=== PATIENT | female | born 1950 | race Caucasian/White ===

== ENCOUNTER 2016-12-22 12:03 | Inpatient (IN) | payer SELFPAY ==
[2016-12-22] MEDS ORDERED: IPRATROPIUM/ALBUTEROL 3 ML NEB INH ONE ×2 (12:34→13:51)
[2016-12-22] MEDS ORDERED: IPRATROPIUM/ALBUTEROL 3 ML NEB INH STA ×2 (12:37→13:46)
[2016-12-22 12:59] LABS: BASOPHILS # (AUTO) 0.1 10^3/uL (0.0-0.1); EOSINOPHILS % (AUTO) 0.1 %; MEAN PLATELET VOLUME 7.7 fL (7.9-10.8)
[2016-12-22 13:03] LABS: BILIRUBIN,TOTAL 0.5 mg/dL (0.2-1.0); CALCIUM 8.8 mg/dL (8.5-10.3); CREATININE 0.6 mg/dL (0.4-1.0); POTASSIUM 3.4 mmol/L (3.5-5.0)
[2016-12-22 13:04] LABS: BASOPHILS % (AUTO) 0.5 %; HCT - HEMATOCRIT 34.7 % (37.0-47.0); HGB - HEMOGLOBIN 11.5 g/dL (12.0-16.0); LYMPHOCYTES # (AUTO) 1.6 10^3/uL (1.5-3.5); LYMPHOCYTES % (AUTO) 11.1 %; MEAN CORPUSCULAR HGB CONC 33.2 g/dL (32.0-36.0); MEAN CORPUSCULAR VOLUME 81.4 fL (81.0-99.0); MONOCYTES # (AUTO) 1.5 10^3/uL (0.0-1.0); MONOCYTES % (AUTO) 10.3 %; NEUTROPHILS # (AUTO) 11.2 10^3/uL (1.5-6.6); NUCLEATED RED BLOOD CELLS AUTO 0.4 /100WBC; RED BLOOD COUNT 4.26 10^6/uL (4.20-5.40); RED CELL DISTRIBUTION WIDTH 16.8 % (12.0-15.0); UNCORRECTED WHITE BLOOD COUNT 14.4 x10^3/uL; WHITE BLOOD COUNT 14.4 x10^3/uL (4.8-10.8)
--- NOTE | 2016-12-22 13:14 | XRAY Preliminary Report ---
Exam: XR Chest 2 View PA/LAT IMPRESSION: 1. 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 2. Bibasilar increase in reticulonodular opacities. This could represent a pattern of bilateral bronc hiolitis and airway inflammation versus pulmonary vascular congestion and edema secondary to pericard ial disease [facility] SITE ID: [id number]
--- NOTE | 2016-12-22 13:17 | XRAY Report ---
EXAM: CHEST RADIOGRAPHY EXAM DATE: 12/22/2016 01:05 PM. CLINICAL HISTORY: Dyspnea and cough. COMPARISON: 01/27/2012. TECHNIQUE: 2 views. FINDINGS: Lungs/Pleura: There are increased bibasilar reticulonodular opacities. There are calcified pleural pl aques with pleural thickening which appear similar to previous. Mediastinum: There are pericardial calcifications. Heart size is normal. Other: None. IMPRESSION: 1. 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 2. Bibasilar increase in reticulonodular opacities. This could represent a pattern of bilateral bronc hiolitis and airway inflammation versus pulmonary vascular congestion and edema secondary to pericard ial disease [facility] Referring Provider Line: [phone] SITE ID: [id number]
--- NOTE | 2016-12-22 13:42 | ED Physician Documentation ---
PD HPI DYSPNEA - Stated complaint Stated Complaint: BILAT EAR PX/O2 LEVEL LOW - Chief complaint Chief Complaint: Resp - History obtained from History obtained from: Patient, Family (spouse) - History of Present Illness Timing - onset: How many days ago (5) Timing - details: Gradual onset Associated symptoms: Fever, Cough Similar symptoms before: Diagnosis (Reports history of similar symptoms about one year ago with pneumonia.) - Additional information Additional information: The patient is a 66-year-old female who presents with dyspnea and productive cough of 5 days duration. She reports fever 2 days ago to 101. She denies chest pain, nausea or vomiting. She reports history of similar symptoms about one year ago when she was treated for pneumonia. She has a long history of cigarette smoking. Past medical history is significant for type II diabetes, congestive heart failure, and herniated intervertebral disc with sciatica. Review of Systems Constitutional: reports: Fever, Fatigue Ears: reports: Loss of hearing (Decreased hearing, left ear worse than right.) Nose: denies: Congestion Throat: denies: Sore throat Cardiac: denies: Chest pain / pressure Respiratory: reports: Dyspnea, Cough GI: denies: Abdominal Pain, Nausea, Vomiting : denies: Dysuria Skin: denies: Rash Musculoskeletal: reports: Back pain (chronically) Neurologic: reports: Generalized weakness. denies: Focal weakness, Numbness, Headache PD PAST MEDICAL HISTORY - Past Medical History Past Medical History: Yes Cardiovascular: Hypertension Endocrine/Autoimmune: Type 2 diabetes GI: GERD HEENT: Chronic hearing loss - Past Surgical History Past Surgical History: Yes General: Cholecystectomy - Present Medications Home Medications: Ambulatory Orders Medication Instructions Recorded Confirmed Enalapril [Vasotec] 20 mg PO BID 03/23/13 12/22/16 Metformin HCl 1,000 mg BID 03/23/13 08/24/14 Levothyroxine [Synthroid] 25 mcg PO DAILY 08/24/14 12/22/16 Omeprazole [PriLOSEC] 1 tab DAILY 12/22/16 12/22/16 - Allergies Allergies/Adverse Reactions: Allergies Allergy/AdvReac Type Severity Reaction Status Date / Time Sulfa (Sulfonamide Allergy Mild Nausea Verified 03/23/13 00:22 Antibiotics) - Social History Does the pt smoke?: Yes Smoking Status: Current every day smoker Does the pt drink ETOH?: No Does the pt have substance abuse?: No - Immunizations Immunizations are current?: Yes - POLST Patient has POLST: No PD ED PE NORMAL - Vitals Vital signs reviewed: Yes (low pulse oximetry of 86 on room air) - General General: Alert and oriented X 3, Other (Appears older than stated age, and in obvious respiratory distress.) - HEENT HEENT: Atraumatic, EOMI, Pharynx benign, Other (Left tympanic membrane is mildly erythematous. Right tympanic membrane is not well visualized due to to cerumen plug. Decreased hearing ability bilaterally.) - Neck Neck: Supple, no meningeal sign, No adenopathy, No JVD - Cardiac Cardiac: No murmur, Other (Rapid rate, regular rhythm.) - Respiratory Respiratory: Other (Diffuse wheezes bilaterally, with rhonchi in the lower lung alaniz bilaterally. Prolonged expiratory phase.) - Abdomen Abdomen: Soft, Non tender, Other (rotund abdomen) - Back Back: No CVA TTP - Derm Derm: No rash - Extremities Extremities: No edema, No calf tenderness / cord - Neuro Neuro: Alert and oriented X 3, No motor deficit, Normal speech Results - Vitals Vitals: Vital Signs - 24 hr 12/22/16 12/22/16 12/22/16 12:17 12:30 13:50 Temperature 36.5 C Heart Rate 108 H 101 H 106 H Respiratory 20 16 26 H Rate Blood Pressure 137/78 H O2 Saturation 86 L 12/22/16 12/22/16 13:51 15:00 Temperature Heart Rate 100 105 H Respiratory 14 22 Rate Blood Pressure 129/65 126/67 O2 Saturation 100 95 Oxygen O2 Source Nasal cannula Oxygen Flow Rate 5 - EKG (time done) 12:31 Rate: Rate (enter#) (106) Rhythm: Atrial fibrillation Andreas: Normal Ischemia: Q waves (in III), T wave inversion (in lateral leads V5, V6) Compare to prior EKG: Changed from prior EKG (A-fib is new since 04/03/2013.) Computer interpretation: Agree with computer - Labs Labs: Laboratory Tests 12/22/16 12/22/16 12/22/16 12:35 12:35 12:35 WBC 14.4 H RBC 4.26 Hgb 11.5 L Hct 34.7 L MCV 81.4 MCH 27.0 MCHC 33.2 RDW 16.8 H Plt Count 397 MPV 7.7 L Reticulocyte % (Auto) Neut # 11.2 H Lymph # 1.6 [place] # 1.5 H Eos # 0.0 Baso # 0.1 Absolute Nucleated RBC 0.06 Nucleated RBCs 0.4 Absolute Retic Sodium 135 Potassium 3.4 L Chloride 97 L Carbon Dioxide 25 Anion Gap 13.0 BUN 19 Creatinine 0.6 Estimated GFR (MDRD) 101 Glucose 192 H Glycated Hemoglobin Estim Average Glucose Calcium 8.8 Phosphorus Magnesium Iron TIBC % Saturation Transferrin Ferritin Total Bilirubin 0.5 AST 13 ALT 12 Alkaline Phosphatase 111 Lactate Dehydrogenase Troponin I < 0.04 C-Reactive Protein B-Natriuretic Peptide Total Protein 7.0 Albumin 3.5 Globulin 3.5 Albumin/Globulin Ratio 1.0 Lipase 10 L Vitamin B12 TSH Urine Color Urine Clarity Urine pH Ur Specific [place] Urine Protein Urine Glucose (UA) Urine Ketones Urine Occult Blood Urine Nitrite Urine Bilirubin Urine Urobilinogen Ur Leukocyte Esterase Urine RBC Urine WBC Ur Squamous Epith Cells Urine Bacteria Urine Casts Ur Microscopic Review Urine Culture Comments 12/22/16 12/22/16 12/22/16 12:35 12:35 12:35 WBC RBC Hgb Hct MCV MCH MCHC RDW Plt Count MPV Reticulocyte % (Auto) Neut # Lymph # [place] # Eos # Baso # Absolute Nucleated RBC Nucleated RBCs Absolute Retic Sodium Potassium Chloride Carbon Dioxide Anion Gap BUN Creatinine Estimated GFR (MDRD) Glucose Glycated Hemoglobin Estim Average Glucose Calcium Phosphorus 4.1 Magnesium 1.7 Iron TIBC % Saturation Transferrin Ferritin Total Bilirubin AST ALT Alkaline Phosphatase Lactate Dehydrogenase Troponin I C-Reactive Protein 27.3 H B-Natriuretic Peptide 60 Total Protein Albumin Globulin Albumin/Globulin Ratio Lipase Vitamin B12 TSH 3.94 Urine Color Urine Clarity Urine pH Ur Specific [place] Urine Protein Urine Glucose (UA) Urine Ketones Urine Occult Blood Urine Nitrite Urine Bilirubin Urine Urobilinogen Ur Leukocyte Esterase Urine RBC Urine WBC Ur Squamous Epith Cells Urine Bacteria Urine Casts Ur Microscopic Review Urine Culture Comments 12/22/16 12/22/16 12/22/16 12:35 12:35 12:35 WBC RBC 4.14 L Hgb Hct MCV MCH MCHC RDW Plt Count MPV Reticulocyte % (Auto) 1.86 Neut # Lymph # [place] # Eos # Baso # Absolute Nucleated RBC Nucleated RBCs Absolute Retic 0.077 Sodium Potassium Chloride Carbon Dioxide Anion Gap BUN Creatinine Estimated GFR (MDRD) Glucose Glycated Hemoglobin 9.0 H Estim Average Glucose 212 H Calcium Phosphorus Magnesium Iron 10 L TIBC 298 % Saturation 3 L Transferrin 213 Ferritin Total Bilirubin AST ALT Alkaline Phosphatase Lactate Dehydrogenase Troponin I C-Reactive Protein B-Natriuretic Peptide Total Protein Albumin Globulin Albumin/Globulin Ratio Lipase Vitamin B12 TSH Urine Color Urine Clarity Urine pH Ur Specific [place] Urine Protein Urine Glucose (UA) Urine Ketones Urine Occult Blood Urine Nitrite Urine Bilirubin Urine Urobilinogen Ur Leukocyte Esterase Urine RBC Urine WBC Ur Squamous Epith Cells Urine Bacteria Urine Casts Ur Microscopic Review Urine Culture Comments 12/22/16 12/22/16 12/22/16 12:35 12:35 13:25 WBC RBC Hgb Hct MCV MCH MCHC RDW Plt Count MPV Reticulocyte % (Auto) Neut # Lymph # [place] # Eos # Baso # Absolute Nucleated RBC Nucleated RBCs Absolute Retic Sodium Potassium Chloride Carbon Dioxide Anion Gap BUN Creatinine Estimated GFR (MDRD) Glucose Glycated Hemoglobin Estim Average Glucose Calcium Phosphorus Magnesium Iron TIBC % Saturation Transferrin Ferritin 73.2 Total Bilirubin AST ALT Alkaline Phosphatase Lactate Dehydrogenase 148 Troponin I C-Reactive Protein B-Natriuretic Peptide Total Protein Albumin Globulin Albumin/Globulin Ratio Lipase Vitamin B12 261 TSH Urine Color YELLOW Urine Clarity CLEAR Urine pH 6.0 Ur Specific [place] 1.020 Urine Protein 30 H Urine Glucose (UA) NEGATIVE Urine Ketones 40 H Urine Occult Blood NEGATIVE Urine Nitrite NEGATIVE Urine Bilirubin NEGATIVE Urine Urobilinogen 1 (NORMAL) Ur Leukocyte Esterase NEGATIVE Urine RBC 0-5 Urine WBC 0-3 Ur Squamous Epith Cells FEW Squamous Urine Bacteria Rare Urine Casts 3-5 Hyaline Casts Ur Microscopic Review INDICATED Urine Culture Comments NOT INDICATED - Rads (name of study) 2-view CXR Radiology: Prelim report reviewed, EMP read contemporaneously, See rad report ( 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 Bibasilar increase in reticulonodular opacities. This could represent a pattern of bilateral bronchiolitis and airway inflammation versus pulmonary vascular congestion and edema secondary to pericardial disease.) PD MEDICAL DECISION MAKING - ED course Complexity details: reviewed old records, reviewed results, re-evaluated patient , considered differential, d/w patient, d/w family, d/w organizational development consultant ED course: The patient's presentation is significant for bilateral pneumonia with hypoxemia. Her pulse oximetry is 86% on room air, and improves to 95% on 4 L supplemental oxygen. White blood cell count is elevated at 14.4. Chest x-ray is significant for bilateral reticulonodular opacities, as well as pericardial calcification, suggestive of restrictive pericarditis. Treatment in the emergency department included administration of duo neb nebulizer x2. There was improved air movement following this treatment but she continued to have bilateral wheezing, dyspnea, and low pulse oximetry without supplemental oxygen. Ceftriaxone 1 g was administered IV. I discussed her condition with Dr. Linton, the hospitalist, and subsequently nurse practitioner Jacob, who admitted her for further evaluation and treatment. Departure - Departure Disposition: 68 [facility] DC/Xfer Clinical Impression: Pneumonia Qualifiers: Pneumonia type: due to unspecified organism Laterality: bilateral Lung location : lower lobe of lung Qualified Code(s): J18.9 - Pneumonia, unspecified organism Condition: Stable Discharge Date/Time: 12/22/16 17:07
[2016-12-22] MEDS ORDERED: DEXAMETHASONE 10 MG/ML VIAL IVP STA (13:47)
[2016-12-22] MEDS ORDERED: cefTRIAXone 1 GM in SODIUM CHLORIDE 0.9% MINIBAG 100 ML IV STA (13:47)
[2016-12-22] MEDS ORDERED: SODIUM CHLORIDE 0.9% MINIBAG 100 ML IV ONE (13:49)
[2016-12-22] MEDS ORDERED: cefTRIAXone 1 GM VIAL ONE (13:49)
[2016-12-22] MEDS ORDERED: DEXAMETHASONE 10 MG/ML VIAL ONE (13:49)
[2016-12-22 13:53] LABS: BILIRUBIN,URINE NEGATIVE (NEGATIVE); UA w/ MICROSCOPIC CHARGE YES
[2016-12-22 14:18] LABS: UR CULTURE IF IND NOT INDICATED; WBC,URINE 0-3 /HPF (0-5)
[2016-12-22] MEDS ORDERED: ONDANSETRON ODT 4 MG TABLET TL PRN (16:49)
[2016-12-22] MEDS ORDERED: SODIUM CHLORIDE FLUSH 0.9% 10 ML SYRINGE IVP PRN (16:49)
[2016-12-22] MEDS ORDERED: ALBUTEROL NEB 2.5 MG/3 ML INH PRN (16:52)
[2016-12-22 17:30] LABS: IMMATURE RETIC FRACTION 0.39; RED BLOOD COUNT 4.14 10^6/uL (4.20-5.40)
[2016-12-22] MEDS: predniSONE 20 MG TABLET PO SCH (17:50)
[2016-12-22] MEDS: PANTOPRAZOLE 40 MG TABLET PO SCH (17:50)
[2016-12-22] MEDS: SODIUM CHLORIDE 0.9% 1,000 ML IV SCH (17:50)
[2016-12-22] MEDS: POTASSIUM CHLORIDE 20 MEQ/15 ML UDC PO SCH (17:51)
[2016-12-22] MEDS: SODIUM CHLORIDE FLUSH 0.9% 10 ML SYRINGE IVP SCH (17:52)
[2016-12-22 17:56] LABS: MAGNESIUM 1.7 mg/dL (1.7-2.8); PHOSPHORUS 4.1 mg/dL (2.5-4.6)
[2016-12-22 18:03] LABS: HEMOGLOBIN A1C 0.93 g/dL
[2016-12-22 18:06] LABS: FERRITIN 73.2 ng/mL (11.0-306.8)
[2016-12-22 18:12] LABS: IRON 10 ug/dL (28-170); TOTAL IRON BINDING CAPACITY 298 ug/dL (250-450); TRANSFERRIN 213 mg/dL (192-382)
[2016-12-22] MEDS: INSULIN ASPART 300 UNIT/3 ML PEN SUBQ SCH ×2 (18:24→21:22)
[2016-12-22] MEDS: IPRATROPIUM/ALBUTEROL 3 ML NEB INH SCH (19:00)
--- NOTE | 2016-12-22 19:33 | HISTORY & PHYSICAL EXAMINATION ---
DATE OF ADMISSION: 12/22/2016 PRIMARY CARE PROVIDER: Henrietta Mcpherson ADMITTING PROVIDER: Henrietta James APRN CHIEF COMPLAINT: Ear pain and low oxygen level with cough. HISTORY OF PRESENT ILLNESS: The patient is a 66-year-old female [facility] a complaint of bilateral ear pain, primarily in the right , low oxygen level, and "upper respiratory infection" that she states she has had now for several days. The patient states that some of her grandchildren have been sick in the home recently, including her . She does have longstanding history of tobacco abuse and smoking; however, she states she has cut back since then. History was obtained from both the patient and her at bedside. She does have a history that includes hypertension, type 2 diabetes that is orally controlled, acid reflux, chronic hearing loss, obesity, hernia repair after abdominal catastrophe, humerus fracture, history of colonoscopy and colon repair. The patient states that her pain is primarily when she coughs and takes a deep breath. She says her right ear also has pain when she is yawning or moving her mouth. She has a cough that is productive at night. She does not use inhalers at home, and has not taken anything for the shortness of breath and cough. While in the ER, she was hypoxic and tachypneic. Her oxygen saturation at the time of assessment in the ER was 86% on room air, her heart rate was elevated at 108. She denies fever, chills, sweats. She denies nausea, vomiting, diarrhea or constipation. EKG was done in the ER, which did show an atrial fibrillation rhythm with mild T-wave inversion, lateral leads. Troponin was negative in the ER. The patient did have an elevated white blood cell count at 14.4 at time of assessment. Chest x-ray preliminary report did show pulmonary vascular congestion and edema with probable pericardial disease and probable bilateral bronchiolitis and airway inflammation. The patient will be admitted into the hospital inpatient for further evaluation for acute respiratory failure with hypoxia and possible pneumonia, bilateral lower lobes. ALLERGIES: SULFA. HOME MEDICATIONS 1. Metformin 500 mg p.o. b.i.d. 2. Prilosec 10 mg capsule 1 tablet daily. 3. Levothyroxine 112 mcg daily. 4. Enalapril 20 mg p.o. b.i.d. PAST MEDICAL HISTORY 1. Hypertension. 2. Diabetes type 2, controlled with metformin. 3. Gastroesophageal reflux disease. 4. Chronic hearing loss. 5. Nicotine dependence. 6. Osteoarthritis, multiple sites. PAST SURGICAL HISTORY 1. Multiple fractures from fall. 2. Cholecystectomy. 3. Proximal humeral fracture of right arm. 4. Hernia repair after abdominal catastrophe. 5. Lumbar spine surgery. 6. Primary osteoarthritis of left shoulder. 7. Osteoarthropathy of the shoulder. PAST FAMILY HISTORY: The patient states both parents had hypertension, diabetes. 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 PAST SOCIAL HISTORY: The patient is a long-term smoker of cigarettes, 40 years. She rarely drinks alcohol, does not use any illicit street drugs. REVIEW OF SYSTEMS: Ten systems have been reviewed, is negative with the exceptions discussed in the HPI prior. PHYSICAL EXAMINATION: CONSTITUTIONAL: The patient is alert, no acute distress. EYES: Pupils equal, round and react to light and accommodation. Conjunctivae and sclerae are nonicteric, not injected. ENT: Nares are patent, no nasal discharge. Oropharynx is slightly reddened with mild erythema to the back of the pharynx. NECK: Supple. No thyromegaly. CARDIOVASCULAR: Tachycardic rate, sinus rhythm. S1, S2 are noted. No gallops, murmurs or rubs. RESPIRATORY: Bronchial sounds with diminished bases, right and left in lungs. No retractions, nasal flaring, increased work of breathing, with productive cough. GASTROINTESTINAL: Abdomen is soft, nontender, bowel sounds present in 4 quadrants. No guarding or rebound. NEUROLOGIC: The patient is alert. GCS 15. Cranial nerves 2 through 7 grossly intact. Sensory is intact. SKIN: Warm, dry, intact. Normal turgor. No evidence of rash, lesions, or cellulitis. PSYCHIATRIC: Behavior is appropriate. Normal affect, pleasant mood. No suicidal ideation. Oriented x3. HEMATOLOGIC: No active bleeding. The patient is hemodynamically stable. LYMPHATICS: No cervical, axillary, supraclavicular lymphadenopathy is noted. GENITOURINARY: No CVA tenderness. No masses palpated. No bladder distention. MUSCULOSKELETAL/EXTREMITIES: The patient has full range of motion with upper and lower extremities. No cyanosis. Pulses were palpable. VITAL SIGNS: Temperature is 36.5, heart rate 102, blood pressure 131/73, respirations are 17. Pulse oximetry 92% on 5 liters nasal cannula. DIAGNOSTICS AND LABORATORY DATA: I personally reviewed the diagnostic and laboratory data in the medical records dated for December 22, 2016. They are as follows: Sodium 135, potassium 3.4, chloride 97, carbon dioxide 25, anion gap 13 , BUN 19, creatinine 0.6, glucose 192. Troponin 0.04. BNP 60. Lipase is 10. Urinalysis is positive for protein and ketones. WBC is 14.4, hemoglobin 11.5, hematocrit 34.7. Diagnostics: I personally reviewed the diagnostic data in the medical records for 12/22/2016 and they are as follows: 1. 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 This possibly could represent bilateral bronchiolitis airway inflammation versus pulmonary vascular congestion and edema secondary to pericardial disease. 2. EKG shows Q waves in lead III with T-wave inversion in lateral leads V5 and 6. AFib, new since 04/03/2013. IMPRESSION AND PLAN 1. Acute respiratory failure with hypoxemia with chronic obstructive pulmonary disease with exacerbation with longstanding history of tobacco abuse, uncomplicated. PLAN: Admit the patient inpatient, start on antibiotic treatment with Rocephin and azithromycin. Respiratory Therapy for support with supplemental oxygen 2 liters nasal cannula to keep oxygen saturation greater than 92%. DuoNeb treatments q.4h. with Atrovent p.r.n. Tylenol for fever management. IV fluids, normal saline at 100 mL an hour. Monitor for crackles or rales in the lungs. The patient was given dexamethasone in the ER. Will continue prednisone 60 mg p.o. daily. Pulmonary toilet and Tessalon Perles for cough. 2. Acute hypokalemia with other electrolyte imbalances. PLAN: Replace potassium with potassium chloride 40 mEq and repeat potassium level with morning blood draw. 3. Acute leukocytosis with probable bilateral bronchiolitis airway inflammation with possible pneumonia of unknown causal organism. PLAN: Respiratory Therapy support, steroid treatments, DuoNeb treatments, continue to monitor electrolytes and white blood cell count with daily labs draw. Tylenol for fever management. 4. Diabetes mellitus, non-insulin dependent, with complications. PLAN: Accu-Cheks a.c. and at bedtime, sliding scale insulin. Will hold metformin. Continue to rehab/pre vocational counselor the patient on weight management and diet control. Diabetic counseling recommended. Sliding scale insulin moderate scale. 5. Hypothyroidism, unspecified. PLAN: Continue on Synthroid 25 mcg p.o. daily with thyroid panel requested. 6. Hypertensive heart disease without congestive heart failure. PLAN: Continue the patient on enalapril. Telemetry monitoring. The patient's BNP was 60; however, possibility of chest x-ray showing mild pulmonary vascular congestion. Will continue to monitor, provide Lasix IV diuresis if necessary. 7. Deep venous thrombosis prophylaxis with lovenox and foot pumps. CODE STATUS: FULL CODE. Time spent on assessment, documentation and planning was 50 minutes for admission. RISK ASSESSMENT/DISPOSITION: The patient is high risk for worsening comorbidities. She will require IV medication with high risk for toxicity, additional diagnostics, and Respiratory Therapy support. Code status was addressed at bedside. The patient will require at least 2-midnight stay due to potential for worsening comorbidities and severity of treatment. JOB #: [id number] EXT JOB #:[id number] TIMUR
[2016-12-22] MEDS: ENALAPRIL 5 MG TABLET PO SCH (21:23)
[2016-12-23] MEDS: IPRATROPIUM/ALBUTEROL 3 ML NEB INH SCH ×4 (01:30→20:43)
[2016-12-23] MEDS: SODIUM CHLORIDE 0.9% 1,000 ML IV SCH ×3 (03:02→15:57)
[2016-12-23] MEDS: SODIUM CHLORIDE FLUSH 0.9% 10 ML SYRINGE IVP SCH ×3 (04:57→21:24)
[2016-12-23] MEDS: ACETAMINOPHEN 325 MG TABLET PO PRN ×3 (06:05→21:15)
[2016-12-23] MEDS: LEVOTHYROXINE 25 MCG TABLET PO SCH (06:06)
[2016-12-23] MEDS: PANTOPRAZOLE 40 MG TABLET PO SCH (06:07)
[2016-12-23] MEDS ORDERED: MAGNESIUM SULFATE 2 GRAM 50 ML IV ONE (06:41)
[2016-12-23] MEDS ORDERED: IRON SUCROSE 300 MG in SODIUM CHLORIDE 0.9% 250 ML IV ONE ×2 (06:42→11:00)
[2016-12-23] MEDS ORDERED: CYANOCOBALAMIN 1,000 MCG/ML VIAL IM ONE ×2 (06:43→09:00)
[2016-12-23 06:46] LABS: BASOPHILS # (AUTO) 0.1 10^3/uL (0.0-0.1); BASOPHILS % (AUTO) 1.4 %; HCT - HEMATOCRIT 33.1 % (37.0-47.0); LYMPHOCYTES % (AUTO) 10.2 %; MEAN CORPUSCULAR HEMOGLOBIN 27.5 pg (27.0-31.0); MEAN CORPUSCULAR HGB CONC 33.3 g/dL (32.0-36.0); MEAN CORPUSCULAR VOLUME 82.6 fL (81.0-99.0); MEAN PLATELET VOLUME 7.7 fL (7.9-10.8); MONOCYTES # (AUTO) 0.3 10^3/uL (0.0-1.0); MONOCYTES % (AUTO) 3.1 %; NEUTROPHILS # (AUTO) 8.7 10^3/uL (1.5-6.6); NEUTROPHILS % (AUTO) 85.3 %; NUCLEATED RED BLOOD CELLS AUTO 0.4 /100WBC; RED BLOOD COUNT 4.01 10^6/uL (4.20-5.40); RED CELL DISTRIBUTION WIDTH 16.8 % (12.0-15.0); UNCORRECTED WHITE BLOOD COUNT 10.2 x10^3/uL; WHITE BLOOD COUNT 10.2 x10^3/uL (4.8-10.8)
[2016-12-23 06:57] LABS: CALCIUM 8.3 mg/dL (8.5-10.3); CREATININE 0.7 mg/dL (0.4-1.0); POTASSIUM 4.4 mmol/L (3.5-5.0)
--- NOTE | 2016-12-23 07:25 | XRAY Preliminary Report ---
Exam: XR Chest 2 View PA/LAT IMPRESSION: 1. Persistent pulmonary opacities and pleural plaquing. 2. Extensive pericardial calcification. [facility] SITE ID: [id number]
--- NOTE | 2016-12-23 07:28 | XRAY Report ---
EXAM: CHEST RADIOGRAPHY EXAM DATE: 12/23/2016 07:05 AM. CLINICAL HISTORY: Cough and shortness of breath. COMPARISON: 12/22/2016. TECHNIQUE: 2 views. FINDINGS: Lungs/Pleura: Bilateral pulmonary opacities are similar compared with the prior exam. No significant pleural effusion is seen. Calcified and noncalcified pleural plaquing is seen. No pneumothorax is not ed. Mediastinum: Heart size is normal. Pericardial calcification again seen. Other: Left rib fractures. Vertebral body fractures are unchanged. Proximal right humerus fracture, p robably old. IMPRESSION: 1. Persistent pulmonary opacities and pleural plaquing. 2. Extensive pericardial calcification. [facility] Referring Provider Line: [phone] SITE ID: [id number]
[2016-12-23] MEDS: INSULIN ASPART 300 UNIT/3 ML PEN SUBQ SCH ×4 (07:59→21:19)
[2016-12-23] MEDS: ENALAPRIL 5 MG TABLET PO SCH ×2 (08:09→21:24)
[2016-12-23] MEDS: predniSONE 20 MG TABLET PO SCH (08:09)
[2016-12-23] MEDS: SACCHAROMYCES BOULARDII 250 MG CAPSULE PO SCH ×2 (08:09→16:01)
[2016-12-23] MEDS: POLYETHYLENE GLYCOL 3350 17 GM PACKET PO SCH (08:10)
[2016-12-23] MEDS: ENOXAPARIN 40 MG/0.4 ML SYRINGE SUBQ SCH (08:10)
[2016-12-23] MEDS: POTASSIUM CHLORIDE 20 MEQ/15 ML UDC PO SCH (08:17)
[2016-12-23] MEDS ORDERED: cefTRIAXone 2 GM in SODIUM CHLORIDE 0.9% MINIBAG 100 ML IV SCH (09:00)
[2016-12-23] MEDS ORDERED: AZITHROMYCIN INJ 500 MG in SODIUM CHLORIDE 0.9% 250 ML IV SCH (10:00)
--- NOTE | 2016-12-23 13:50 | PROVIDER PROGRESS NOTE ---
Assessment/Plan - Problem List (1) Acute respiratory failure with hypoxia Assessment/Plan: improving. continue on Rocephin IV and respiratory therapy treatments with duonebs. sputum culture pending. supplemental oxygen provided, Echo study pending. will discontinue rocephin once urine and sputum culture returned. White count has improved today. 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 continue with sliding scale insulin and diabetic diet. hemoglobin A1C is 9.0 diabetic counseling recommended. (3) Low serum magnesium level Assessment/Plan: acute. replace magnesium with IV magnesium sulfate. monitor with daily lab draws. (4) Iron deficiency anemia, unspecified Qualifiers: Iron deficiency anemia type: unspecified iron deficiency Qualified Code(s) : D50.9 - Iron deficiency anemia, unspecified Assessment/Plan: ongoing. venofer and monitor for bleeding. CBC tomorrow with lab draw. 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 provide nicotine patch and cessation education (7) Excess wax in ear Qualifiers: Laterality: bilateral Qualified Code(s): H61.23 - Impacted cerumen, bilateral Assessment/Plan: acute. irrigated bilateral ear drums with normalsaline and peroxide. right ear was impacted with cotton and wax. removed and patient was able to hear better - Current Meds Current Meds: Current Medications Generic Name Dose Route Start Last Admin Trade Name Freq PRN Reason Stop Dose Admin Acetaminophen 650 mg 12/22/16 16:49 12/23/16 13:09 Tylenol PO 650 mg Q4HR PRN Administration Pain 1 to 4 Albuterol/Ipratropium 3 ml 12/22/16 19:00 12/23/16 09:02 Duoneb INH 3 ml RTQ6H KARINA Administration Enalapril Maleate 20 mg 12/22/16 21:00 12/23/16 08:09 Vasotec PO 20 mg BID KARINA Administration Enoxaparin Sodium 40 mg 12/23/16 09:00 12/23/16 08:10 Lovenox SUBQ 40 mg DAILY KARINA Administration Sodium Chloride 1,000 mls @ 100 mls/hr 12/22/16 17:00 12/23/16 03:56 Normal Saline 0.9% IV 100 mls/hr .Q10H KARINA Administration Ceftriaxone Sodium 2 gm/ 100 mls @ 200 mls/hr 12/23/16 09:00 12/23/16 09:09 Sodium Chloride IV 200 mls/hr DAILY KARINA Administration Azithromycin 500 mg/ Sodium 250 mls @ 250 mls/hr 12/23/16 10:00 12/23/16 10:11 Chloride IV 250 mls/hr Q24H KARINA Administration Insulin Aspart 1 - 9 unit 12/23/16 08:00 12/23/16 12:08 Novolog SUBQ 5 unit 0800,1200,1700,2100 KARINA Administration Protocol Levothyroxine Sodium 25 mcg 12/23/16 07:00 12/23/16 06:06 Synthroid PO 25 mcg QDAC KARINA Administration Ondansetron HCl 4 mg 12/22/16 16:49 12/22/16 18:37 Zofran Odt TL 4 mg Q6HR PRN Administration Nausea / Vomiting Pantoprazole Sodium 40 mg 12/22/16 17:00 12/23/16 06:07 Protonix PO 40 mg QDAC KARINA Administration Polyethylene Glycol 17 gm 12/23/16 09:00 12/23/16 08:10 Miralax PO 17 gm DAILY KARINA Administration Potassium Chloride 20 meq 12/22/16 18:00 12/23/16 08:17 PO 20 meq DAILYWM KARINA Administration Prednisone 20 mg 12/22/16 18:00 12/23/16 08:09 Deltasone PO 20 mg DAILYWM KARINA Administration Saccharomyces Boulardii 250 mg 12/23/16 08:00 12/23/16 08:09 Florastor PO 250 mg BIDWM KARINA Administration Sodium Chloride 10 ml 12/22/16 22:00 12/23/16 13:38 Normal Saline Flush 0.9% IVP 10 ml Q8HR KARINA Administration - Lab Result Lab results reviewed: Yes Fish Bone Diagrams: 12/23/16 06:37 12/23/16 06:37 Other Lab Results: Abnormal Lab Results 12/22/16 12/22/16 12/22/16 12:35 12:35 12:35 WBC 14.4 x10^3/uL H x10^3/uL (4.8-10.8) RBC Hgb 11.5 g/dL L g/dL (12.0-16.0) Hct 34.7 % L % (37.0-47.0) RDW 16.8 % H % (12.0-15.0) MPV 7.7 fL L fL (7.9-10.8) Neut # 11.2 10^3/uL H 10^3/uL (1.5-6.6) Lymph # [place] # 1.5 10^3/uL H 10^3/uL (0.0-1.0) Sodium Potassium 3.4 mmol/L L mmol/L (3.5-5.0) Chloride 97 mmol/L L mmol/L (101-111) BUN Estimated GFR (MDRD) Glucose 192 mg/dL H mg/dL (70-100) POC Whole Bld Glucose Glycated Hemoglobin Estim Average Glucose Calcium Iron % Saturation C-Reactive Protein 27.3 mg/dL H mg/dL (0-1.0) Lipase 10 U/L L U/L (22-51) Free T3 pg/mL Urine Protein Urine Ketones 12/22/16 12/22/16 12/22/16 12:35 12:35 12:35 WBC RBC 4.14 10^6/uL L 10^6/uL (4.20-5.40) Hgb Hct RDW MPV Neut # Lymph # [place] # Sodium Potassium Chloride BUN Estimated GFR (MDRD) Glucose POC Whole Bld Glucose Glycated Hemoglobin 9.0 % H % (4.6-6.2) Estim Average Glucose 212 H (70-100) Calcium Iron 10 ug/dL L ug/dL (28-170) % Saturation 3 % L % (20-50) C-Reactive Protein Lipase Free T3 pg/mL Urine Protein Urine Ketones 12/22/16 12/22/16 12/22/16 13:25 17:44 21:01 WBC RBC Hgb Hct RDW MPV Neut # Lymph # [place] # Sodium Potassium Chloride BUN Estimated GFR (MDRD) Glucose POC Whole Bld Glucose 240 mg/dL H mg/dL 276 mg/dL H mg/dL (70 - 100) (70 - 100) Glycated Hemoglobin Estim Average Glucose Calcium Iron % Saturation C-Reactive Protein Lipase Free T3 pg/mL Urine Protein 30 mg/dL H mg/dL (NEGATIVE) Urine Ketones 40 mg/dL H mg/dL (NEGATIVE) 12/23/16 12/23/16 12/23/16 06:32 06:37 06:37 WBC RBC 4.01 10^6/uL L 10^6/uL (4.20-5.40) Hgb 11.0 g/dL L g/dL (12.0-16.0) Hct 33.1 % L % (37.0-47.0) RDW 16.8 % H % (12.0-15.0) MPV 7.7 fL L fL (7.9-10.8) Neut # 8.7 10^3/uL H 10^3/uL (1.5-6.6) Lymph # 1.0 10^3/uL L 10^3/uL (1.5-3.5) [place] # Sodium 134 mmol/L L mmol/L (135-145) Potassium Chloride BUN 25 mg/dL H mg/dL (6-20) Estimated GFR (MDRD) 84 L (>89) Glucose 257 mg/dL H mg/dL (70-100) POC Whole Bld Glucose Glycated Hemoglobin Estim Average Glucose Calcium 8.3 mg/dL L mg/dL (8.5-10.3) Iron % Saturation C-Reactive Protein Lipase Free T3 pg/mL 2.24 pg/mL L pg/mL (2.5-3.9) Urine Protein Urine Ketones 12/23/16 12/23/16 07:26 11:31 WBC RBC Hgb Hct RDW MPV Neut # Lymph # [place] # Sodium Potassium Chloride BUN Estimated GFR (MDRD) Glucose POC Whole Bld Glucose 260 mg/dL H mg/dL 246 mg/dL H mg/dL (70 - 100) (70 - 100) Glycated Hemoglobin Estim Average Glucose Calcium Iron % Saturation C-Reactive Protein Lipase Free T3 pg/mL Urine Protein Urine Ketones - EKG Results EKG Interpreted Independently: Yes - Additional Planning Condition/Complexity: Stable My Orders: My Active Orders 12/22/16 16:49 Activity Orders [RC] Routine IO [RC] IOSHIFT Initiate Bowel Care Protocol [RC] QSHIFT Initiate Flu Vaccine Screening [RC] .once Initiate Line Care Protocol [RC] QSHIFT Initiate Personal Care Protoco [RC] QSHIFT Initiate Pneumonia Vaccine Scr [RC] .once Oxygen Therapy [RC] Routine Vital Signs [RC] Q8H Acetaminophen [Tylenol] 650 mg PO Q4HR PRN Ondansetron Odt [Zofran Odt] 4 mg TL Q6HR PRN Sodium Chloride Flush 0.9% [Normal Saline Flush 0.9%] 10 ml IVP PRN PRN Code Status [OTHERS] Routine Condition of Patient [OTHERS] Routine DVT Prophylaxis [OTHERS] Routine 12/22/16 16:50 Daily Weight [RC] 0600 12/22/16 16:51 Foot Pumps [RC] QSHIFT Telemetry [RC] Routine 12/22/16 16:52 Albuterol 2.5 mg INH Q2HR PRN Evaluate and Treat OT [OT] Routine Evaluate and Treat PT [PT] Routine 12/22/16 17:00 Pantoprazole [Protonix] 40 mg PO QDAC Sodium Chloride 0.9% [Normal Saline 0.9%] 1,000 ml IV 100 mls/hr 12/22/16 17:09 Blood Glucose Checks - Eating [RC] 0800,1200,1700,2100 Initiate Hypoglycemia Protocol [RC] .protocol Nutrition Consult [CONS] Routine 12/22/16 17:16 RT [Nebulizer/MDI Tx.] [RC] QID 12/22/16 17:18 Echo Complete w/Bubble Study [ECHO] Stat 12/22/16 17:45 CULTURE, BLOOD (NOTE DRAW #) [RM] Routine 12/22/16 18:00 Potassium Chloride Oral Soln 20 meq PO DAILYWM predniSONE [Deltasone] 20 mg PO DAILYWM 12/22/16 19:00 Ipratropium/Albuterol [Duoneb] 3 ml INH RTQ6H 12/22/16 19:40 CUL, RESPIRATORY [RM] Routine 12/22/16 21:00 Enalapril [Vasotec] 20 mg PO BID 12/22/16 22:00 Sodium Chloride Flush 0.9% [Normal Saline Flush 0.9%] 10 ml IVP Q8HR 12/23/16 Financial Assistance [CAREMGT] Routine 12/23/16 07:00 Levothyroxine [Synthroid] 25 mcg PO QDAC 12/23/16 08:00 Insulin Aspart [NovoLOG] 1 - 9 unit SUBQ 0800,1200,1700,2100 Saccharomyces Boulardii [Florastor] 250 mg PO BIDWM 12/23/16 09:00 Enoxaparin [Lovenox] 40 mg SUBQ DAILY Polyethylene Glycol 3350 [Miralax] 17 gm PO DAILY cefTRIAXone [Rocephin] 2 gm Sodium Chloride 0.9% Minibag [Normal Saline 0.9% Minibag] 100 ml IV DAILY 12/23/16 10:00 Azithromycin Inj [Zithromax Inj] 500 mg Sodium Chloride 0.9% [Normal Saline 0.9%] 250 ml IV Q24H 12/24/16 05:00 BMP - BASIC METABOLIC PANEL [CHEM] DAILYLAB CBC - COMP BLD CT W/AUTO DIFF [HEME] DAILYLAB CMP [COMPREHENSIVE METABOLIC PANEL] [CHEM] DAILYLAB 12/25/16 05:00 BMP - BASIC METABOLIC PANEL [CHEM] DAILYLAB CBC - COMP BLD CT W/AUTO DIFF [HEME] DAILYLAB Consult/Specialty: OT, PT Plan Discussed with:: Patient, Case Management Time Spent: 31-60 minutes Subjective - Subjective Patient Reports: Feeling Better, Resting Comfortably, Cough, Pain (to right ear) , Other (ear pain to bilateral ears) Nursing Reports: Pain (to ears) Objective Vital Signs: Vital Signs - 24 hr 12/22/16 12/22/16 12/22/16 17:04 17:24 19:00 Temperature 36.5 C Heart Rate 98 96 Heart Rate [ 102 H Brachial] Heart Rate [ Sitting] Heart Rate [ Supine] Respiratory 14 17 20 Rate Blood Pressure 128/71 Blood Pressure [Left Brachial artery] Blood Pressure 131/73 H [Right Brachial artery] Blood Pressure [Sitting] Blood Pressure [Supine] O2 Saturation 92 92 O2 Saturation [ With Activity] O2 Saturation [ Without Activity] 12/22/16 12/23/16 12/23/16 21:24 00:05 01:30 Temperature 36.4 C L 36.9 C Heart Rate 78 Heart Rate [ 90 83 Brachial] Heart Rate [ Sitting] Heart Rate [ Supine] Respiratory 20 20 18 Rate Blood Pressure Blood Pressure [Left Brachial artery] Blood Pressure 105/69 106/69 [Right Brachial artery] Blood Pressure [Sitting] Blood Pressure [Supine] O2 Saturation 96 99 O2 Saturation [ With Activity] O2 Saturation [ Without Activity] 12/23/16 12/23/16 12/23/16 04:10 07:15 09:03 Temperature 36.7 C 36.6 C Heart Rate 78 Heart Rate [ 88 74 Brachial] Heart Rate [ Sitting] Heart Rate [ Supine] Respiratory 18 16 18 Rate Blood Pressure Blood Pressure [Left Brachial artery] Blood Pressure 111/78 118/63 [Right Brachial artery] Blood Pressure [Sitting] Blood Pressure [Supine] O2 Saturation 99 97 O2 Saturation [ With Activity] O2 Saturation [ Without Activity] 12/23/16 12/23/16 11:00 13:32 Temperature 36.6 C Heart Rate Heart Rate [ 89 Brachial] Heart Rate [ 87 Sitting] Heart Rate [ 89 Supine] Respiratory 19 Rate Blood Pressure Blood Pressure 110/65 [Left Brachial artery] Blood Pressure [Right Brachial artery] Blood Pressure 103/67 [Sitting] Blood Pressure 97/63 [Supine] O2 Saturation 93 O2 Saturation [ 96 With Activity] O2 Saturation [ 91 L Without Activity] Oxygen O2 Source [With Activity] Nasal cannula O2 Source [Without Activity] Nasal cannula O2 Source Nasal cannula I&O (Last 24 Hrs): Intake and Output Totals x24h 12/21/16 12/22/16 12/23/16 23:59 23:59 23:59 Intake Total 584 2058 Balance 584 2058 General: Alert, Oriented x3, Cooperative HEENT: PERRLA Neck: Supple, No JVD Lymphatic: no adenopathy Neuro: Alert, CN 2-12 Grossly Intact, Oriented Times 3 Cardiovascular: Regular rate, Normal S1, Normal S2 Respiratory: Chest non-tender, No respiratory distress, Other (bronchial sounds) Abdomen: Normal bowel sounds, Soft, No tenderness Genitourinary: No Discharge Rectal: Stool - Heme NEG Extremities: No clubbing, No cyanosis, No edema Skin: No rashes, No breakdown, No significant lesion - Results Results: Laboratory Results WBC 10.2 x10^3/uL (4.8-10.8) 12/23/16 06:37 RBC 4.01 10^6/uL (4.20-5.40) L 12/23/16 06:37 Hgb 11.0 g/dL (12.0-16.0) L 12/23/16 06:37 Hct 33.1 % (37.0-47.0) L 12/23/16 06:37 MCV 82.6 fL (81.0-99.0) 12/23/16 06:37 MCH 27.5 pg (27.0-31.0) 12/23/16 06:37 MCHC 33.3 g/dL (32.0-36.0) 12/23/16 06:37 RDW 16.8 % (12.0-15.0) H 12/23/16 06:37 Plt Count 377 10^3/uL (130-450) 12/23/16 06:37 MPV 7.7 fL (7.9-10.8) L 12/23/16 06:37 Reticulocyte % (Auto) 1.86 % (0.5-2.3) 12/22/16 12:35 Neut # 8.7 10^3/uL (1.5-6.6) H 12/23/16 06:37 Lymph # 1.0 10^3/uL (1.5-3.5) L 12/23/16 06:37 [place] # 0.3 10^3/uL (0.0-1.0) 12/23/16 06:37 Eos # 0.0 10^3/uL (0.0-0.7) 12/23/16 06:37 Baso # 0.1 10^3/uL (0.0-0.1) 12/23/16 06:37 Absolute Nucleated RBC 0.04 x10^3/uL 12/23/16 06:37 Nucleated RBCs 0.4 /100WBC 12/23/16 06:37 Absolute Retic 0.077 10^6/uL (0.020-0.110) 12/22/16 12:35 Sodium 134 mmol/L (135-145) L 12/23/16 06:37 Potassium 4.4 mmol/L (3.5-5.0) 12/23/16 06:37 Chloride 101 mmol/L (101-111) 12/23/16 06:37 Carbon Dioxide 22 mmol/L (21-32) 12/23/16 06:37 Anion Gap 11.0 (6-13) 12/23/16 06:37 BUN 25 mg/dL (6-20) H 12/23/16 06:37 Creatinine 0.7 mg/dL (0.4-1.0) 12/23/16 06:37 Estimated GFR (MDRD) 84 (>89) L 12/23/16 06:37 Glucose 257 mg/dL (70-100) H 12/23/16 06:37 POC Whole Bld Glucose 246 mg/dL (70 - 100) H 12/23/16 11:31 Glycated Hemoglobin 9.0 % (4.6-6.2) H 12/22/16 12:35 Estim Average Glucose 212 (70-100) H 12/22/16 12:35 Calcium 8.3 mg/dL (8.5-10.3) L 12/23/16 06:37 Phosphorus 4.1 mg/dL (2.5-4.6) 12/22/16 12:35 Magnesium 1.7 mg/dL (1.7-2.8) 12/22/16 12:35 Iron 10 ug/dL (28-170) L 12/22/16 12:35 TIBC 298 ug/dL (250-450) 12/22/16 12:35 % Saturation 3 % (20-50) L 12/22/16 12:35 Transferrin 213 mg/dL (192-382) 12/22/16 12:35 Ferritin 73.2 ng/mL (11.0-306.8) 12/22/16 12:35 Total Bilirubin 0.5 mg/dL (0.2-1.0) 12/22/16 12:35 AST 13 IU/L (10-42) 12/22/16 12:35 ALT 12 IU/L (10-60) 12/22/16 12:35 Alkaline Phosphatase 111 IU/L (42-121) 12/22/16 12:35 Lactate Dehydrogenase 148 IU/L (91-225) 12/22/16 12:35 Troponin I < 0.04 ng/mL (<0.49) 12/22/16 12:35 C-Reactive Protein 27.3 mg/dL (0-1.0) H 12/22/16 12:35 B-Natriuretic Peptide 60 pg/mL (5-100) 12/22/16 12:35 Total Protein 7.0 g/dL (6.7-8.2) 12/22/16 12:35 Albumin 3.5 g/dL (3.2-5.5) 12/22/16 12:35 Globulin 3.5 g/dL (2.1-4.2) 12/22/16 12:35 Albumin/Globulin Ratio 1.0 (1.0-2.2) 12/22/16 12:35 Lipase 10 U/L (22-51) L 12/22/16 12:35 Vitamin B12 261 pg/mL (180-914) 12/22/16 12:35 TSH 3.94 uIU/mL (0.34-5.60) 12/22/16 12:35 Free T4 0.90 ng/dL (0.58-1.64) 12/23/16 06:32 Free T3 pg/mL 2.24 pg/mL (2.5-3.9) L 12/23/16 06:32 Urine Color YELLOW 12/22/16 13:25 Urine Clarity CLEAR (CLEAR) 12/22/16 13:25 Urine pH 6.0 PH (5.0-7.5) 12/22/16 13:25 Ur Specific [place] 1.020 (1.002-1.030) 12/22/16 13:25 Urine Protein 30 mg/dL (NEGATIVE) H 12/22/16 13:25 Urine Glucose (UA) NEGATIVE mg/dL (NEGATIVE) 12/22/16 13:25 Urine Ketones 40 mg/dL (NEGATIVE) H 12/22/16 13:25 Urine Occult Blood NEGATIVE (NEGATIVE) 12/22/16 13:25 Urine Nitrite NEGATIVE (NEGATIVE) 12/22/16 13:25 Urine Bilirubin NEGATIVE (NEGATIVE) 12/22/16 13:25 Urine Urobilinogen 1 (NORMAL) E.U./dL (NORMAL) 12/22/16 13:25 Ur Leukocyte Esterase NEGATIVE (NEGATIVE) 12/22/16 13:25 Urine RBC 0-5 /HPF (0-5) 12/22/16 13:25 Urine WBC 0-3 /HPF (0-5) 12/22/16 13:25 Ur Squamous Epith Cells FEW Squamous (<= Few) 12/22/16 13:25 Urine Bacteria Rare /HPF (None Seen) 12/22/16 13:25 Urine Casts 3-5 Hyaline Casts /LPF 12/22/16 13:25 Ur Microscopic Review INDICATED 12/22/16 13:25 Urine Culture Comments NOT INDICATED 12/22/16 13:25 Influenza A (Rapid) Negative (Negative) 12/22/16 17:33 Influenza B (Rapid) Negative (Negative) 12/22/16 17:33 Influenza Types A,B Ag - 12/22/16 17:33
[2016-12-23] MEDS ORDERED: LORazepam 0.5 MG TABLET PO PRN (20:48)
[2016-12-23] MEDS: guaiFENesin 600 MG TABLET PO SCH (21:15)
[2016-12-24] MEDS: IPRATROPIUM/ALBUTEROL 3 ML NEB INH SCH ×2 (05:05→13:07)
[2016-12-24] MEDS: LEVOTHYROXINE 25 MCG TABLET PO SCH (06:14)
[2016-12-24] MEDS: PANTOPRAZOLE 40 MG TABLET PO SCH (06:14)
[2016-12-24] MEDS: SODIUM CHLORIDE FLUSH 0.9% 10 ML SYRINGE IVP SCH ×2 (06:14→13:10)
[2016-12-24 06:31] LABS: BASOPHILS # (AUTO) 0.1 10^3/uL (0.0-0.1); BASOPHILS % (AUTO) 0.5 %; HCT - HEMATOCRIT 30.9 % (37.0-47.0); HGB - HEMOGLOBIN 10.2 g/dL (12.0-16.0); LYMPHOCYTES # (AUTO) 2.6 10^3/uL (1.5-3.5); LYMPHOCYTES % (AUTO) 15.3 %; MEAN CORPUSCULAR HGB CONC 32.8 g/dL (32.0-36.0); MEAN CORPUSCULAR VOLUME 82.2 fL (81.0-99.0); MEAN PLATELET VOLUME 7.5 fL (7.9-10.8); MONOCYTES # (AUTO) 1.1 10^3/uL (0.0-1.0); MONOCYTES % (AUTO) 6.6 %; NEUTROPHILS # (AUTO) 13.4 10^3/uL (1.5-6.6); NEUTROPHILS % (AUTO) 77.6 %; NUCLEATED RED BLOOD CELLS AUTO 0.5 /100WBC; RED BLOOD COUNT 3.77 10^6/uL (4.20-5.40); RED CELL DISTRIBUTION WIDTH 16.7 % (12.0-15.0); UNCORRECTED WHITE BLOOD COUNT 17.2 x10^3/uL; WHITE BLOOD COUNT 17.2 x10^3/uL (4.8-10.8)
[2016-12-24 06:46] LABS: ALBUMIN/GLOBULIN RATIO 0.9 (1.0-2.2); BILIRUBIN,TOTAL 0.4 mg/dL (0.2-1.0); CALCIUM 8.6 mg/dL (8.5-10.3); CREATININE 0.6 mg/dL (0.4-1.0); TOTAL PROTEIN 6.2 g/dL (6.7-8.2)
[2016-12-24 07:17] LABS: HEMOGLOBIN A1C 0.83 g/dL
[2016-12-24] MEDS ORDERED: INSULIN GLARGINE 300 UNIT/3 ML PEN SUBQ SCH ×2 (08:00→21:00)
[2016-12-24] MEDS: INSULIN ASPART 300 UNIT/3 ML PEN SUBQ SCH ×2 (08:18→11:52)
[2016-12-24] MEDS: POTASSIUM CHLORIDE 20 MEQ/15 ML UDC PO SCH (08:21)
[2016-12-24] MEDS: SACCHAROMYCES BOULARDII 250 MG CAPSULE PO SCH (08:31)
[2016-12-24] MEDS: ENOXAPARIN 40 MG/0.4 ML SYRINGE SUBQ SCH (08:31)
[2016-12-24] MEDS: ENALAPRIL 5 MG TABLET PO SCH (08:31)
[2016-12-24] MEDS: guaiFENesin 600 MG TABLET PO SCH ×2 (08:31→08:33)
[2016-12-24] MEDS: POLYETHYLENE GLYCOL 3350 17 GM PACKET PO SCH (08:33)
[2016-12-24] MEDS ORDERED: CIPROFLOX/DEXAMETH OTIC DROPS RIGHTEAR SCH (09:00)
[2016-12-24] MEDS ORDERED: levoFLOXacin 250 MG TABLET PO SCH (10:00)
[2016-12-24] MEDS ORDERED: ALBUTEROL 8 GM INHALER INH PRN (13:09)
[2016-12-24 13:13] VITALS: BP 117/79
--- NOTE | 2016-12-24 13:19 | Discharge Plan ---
Discharge Plan Disposition: Home, Self Care Condition: Good Prescriptions: Ciproflox/Dexameth Otic Drops [Ciprodex Otic Drops] 4 drops RIGHTEAR BID #1 bottle levoFLOXacin [Levaquin] 750 mg PO DAILY #7 tablet guaiFENesin [Mucinex] 600 mg PO BID #20 tablet Albuterol Sulfate [Proventil Hfa Inhaler] 1 - 2 puffs INH Q4H PRN #1 inhaler PRN Reason: Shortness Of Air/Wheezing Diet: Diabetic (you will need followup with diabetic counselor outpatient. your hemoglobin A1C was 9.1.) Activity Restrictions: Activity as Tolerated Shower Restrictions: No Driving Restrictions: No Assistance Devices: Walker, Cane (as nneded) Weight Bearing: Full Weight Instruction Topics: Middle Ear Common Probs, Screening Hearing Nb, ED URI Viral Additional Instructions or Follow Up instructions: Please take all home medications as prescribed. You will need to see your primary care provider within one week of discharge and discuss diabetic teaching since your hemoglobin A1C was 9.1. You have been given a prescription for Levaquin for an antibiotic. take this until gone. Activity: to be as tolerated. take frequent rest breaks as needed.get plenty of sleep daily. 7-8 hours is best. please get exercise at least 5 days a week. walking is best. use your home oxygen when you get short of breath. No smoking when oxygen is in use. Diet: You will need to follow a low carb diabetic diet. Your hemoglobin A1C was elevated at 9.1 and you will need to see your primary care provider for further workup and evaluation. You need to continue to check your blood glucose daily. Drink plenty of water and no soda and limit caffeine Follow-Up Care: Dietitian (Followup for blood glucose monitoring and diabetic education) No Smoking: If you smoke, Please STOP! Call for help.
--- NOTE | 2016-12-24 18:27 | DISCHARGE SUMMARY ---
DATE OF ADMISSION: 12/22/2016 DATE OF DISCHARGE: 12/24/2016 DISCHARGE PROVIDER: MICHAEL JAMES APRN ADMITTING DIAGNOSES: 1. Possible bilateral pneumonia of left lower lobe of the lung, unknown causal organism. DISCHARGE DIAGNOSES: 1. Acute respiratory failure with hypoxia. 2. 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 3. Low serum magnesium level. 4. Iron deficiency anemia, unspecified. 5. Diabetes mellitus due to underlying condition with complication. 6. Nicotine dependence, cigarettes, uncomplicated. 7. Excessive wax in the ear. DISCHARGING PROVIDER: Michael James APRN. PRIMARY CARE PROVIDER: None. PROCEDURES: 1. Irrigation of ear to the right and left ear with wax removal. 2. 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 CONSULTATIONS: None. HOSPITAL COURSE AND TREATMENT: The patient is a 66-year-old pleasant female who came in through the ER for a complaint of upper respiratory symptoms , cough, congestion, ear pain with underlying history of COPD and long time smoking history greater than 40 pack years. The patient was evaluated in the ER by the ER provider and found to be short of breath, having a fever for 2 days greater than 101 and for possible pneumonia. The patient also was complaining of having body aches, chills, and decreased hearing from her right ear. The patient was evaluated in the ER prior to admission. She has a longstanding history of type 2 diabetes, congestive heart failure and herniated vertebral disk with sciatica. She has chronic hearing loss in the left ear and upon evaluation, she had significant pain to the right ear as well. She states she has had a cough, fever, denies nausea or vomiting or chest pain; however, at the time of presentation in the ER she was not febrile. She says that she has had shortness of breath with exertion and she does not feel her normal self lately. The patient was then admitted for further evaluation and workup. The patient continued on her Synthroid 25 mcg p.o. and thyroid panel was requested, which was within normal limits. For acid reflux disease she continued on Prilosec 1 tab daily. For diabetes she was placed on a diabetic diet with sliding scale insulin and A1c was requested. Metformin was held. Her A1c came back at 9.1, and the patient was provided counseling regarding nutrition and carbohydrate counting diet. She continued on enalapril for hypertension. EKG was done. She remained in sinus rhythm; however, was showing that she had slight atrial fibrillation in the ER prior. Second EKG done showed sinus rate and rhythm. This could have been because the EKG originally might have been read incorrectly because the patient had been tachycardic at the time of admission to the ER. The patient's blood pressure and temperature remained stable, temperature at time of admission was 36.5. The patient did have a white blood cell count at the time of admission , did decrease to 10 and then did spike on the third day. However, this probably was contributed to steroid treatments for the shortness of breath. She remained afebrile with no shift and no complaints of chills, nausea, sweats or body aches. The patient also did have some electrolyte imbalances including magnesium and potassium, which were replaced during admission. Blood sugars remained around 200. The patient was started on Lantus subcutaneous at night and in the morning and blood sugars did improve to less than 200 at that time. She was not discharged home on insulin therapy since it was more advisable that she followup with primary care provider , diabetic education for further evaluation of her elevated blood sugars. On the day of discharge, the patient was anxious to be discharged home. She had strict instructions to followup with primary care provider for further evaluation of her right ear. She was also given ciprofloxacin ear drops for probable external ear infection. Iron studies were also done since the patient was slightly anemic at the time of admission. Iron level was at 10 with a percent saturation at 3 and a TIBC of 298, with transferrin of 213 (was given Venofer for iron deficient anemia). On the day of discharge, the patient was to be taken home with her , who was agreeable to continue to monitor her. The patient was given ceftriaxone IV while in the ER, she did continue on IV treatments, ceftriaxone and azithromycin transitioned to Levaquin; however post-sputum and blood cultures were both negative. Since the patient does have longstanding history of smoking along with upper respiratory infection and slightly elevated white count she did continue on a course of additional 5 days of Levaquin coverage. She was also tapered on prednisone steroid Dosepak. The patient was discharged home. Vital signs were within normal limits, temperature was 36.3, heart rate was 78, respirations 18, blood pressure 117/79 at the time of discharge, with oxygen saturation at 92% on 2 liters. Since her oxygen saturation was decreased at rest to 90% on room air and with exertion dropped to 87% on room air, recommendation for home oxygen was requested. On oxygen 2 liters, her oxygen saturation at rest was >92% and with exertion improved to at least 92%. She was discharged home with oxygen therapy since she met parameters in a desat study. The patient was instructed to followup with primary care provider within 3 days of discharge. MEDICATIONS AT TIME OF DISCHARGE: 1. Levofloxacin. 2. Metformin. 3. Norvasc. 4. Omeprazole. 5. Vasotec. 6. Ciprofloxin drops. 7. Levaquin. 8. Mucinex. 9. Albuterol sulfate inhaler. PHYSICAL EXAMINATION: CONSTITUTIONAL: The patient is alert, in no acute distress. EYES: Pupils are equal, round and reactive to light and accommodation. Conjunctivae and sclerae was nonicteric, not injected. ENT: Nares are patent. Oropharynx: No masses, exudates or lesions. Mucous membranes were moist. Bilateral ear with no edema or erythema. NECK: Supple. No thyromegaly. RESPIRATORY: Breath sounds were diminished in bases; however, clear with no wheezing, rhonchi, or crackles noted. No retractions or nasal flaring. CARDIOVASCULAR: Regular rate and rhythm. S1, S2 noted. No gallops, murmurs or rubs. GASTROINTESTINAL: Abdomen was soft, nontender. Bowel sounds are present in 4 quadrants. No guarding or rebound. NEUROLOGIC: The patient was alert, GCS 15. Cranial nerves 2-12 grossly intact. Sensory was intact. SKIN: SKIN: Warm, dry, intact. Normal turgor. No evidence of rash, lesions, or cellulitis. GENITOURINARY: No CVA tenderness. No masses palpated. No bladder distention. PSYCHIATRIC: Appears appropriate. Normal affect, pleasant mood. Oriented x3. HEMATOLOGIC: No active bleeding. The patient is hemodynamically stable. LYMPHATICS: No cervical, axillary, supraclavicular lymphadenopathy was noted. MUSCULOSKELETAL: Extremities: Full range of motion with upper and lower extremities. No cyanosis. Pulses were palpable. INSTRUCTIONS FOR FOLLOWUP AT DISCHARGE: 1. ACTIVITY: The patient is to continue with activities of normal daily living as tolerated. She understands she is to take frequent rest breaks and get plenty of sleep in the evening between 7 to 8 hours is preferred. 2. DIET: The patient is to continue on diabetic diet, reducing her carbohydrate intake. Hemoglobin A1c was 9.0. She has been instructed to seek diabetic counseling outpatient with a referral from primary care provider. She is to drink plenty of water throughout the day and to avoid sodas and juices and continue to monitor her caloric intake as well. 3. FOLLOWUP: The patient understands she is to followup with primary care provider within 1 week of discharge. She also knows she is to take all home medications that have been prescribed to her including Levaquin and Dosepak of steroids. She is to continue antibiotic therapy until all the pills are gone. She understands she is to return to the ER for worsening of symptoms or if she experiences chest pain or shortness of breath. The patient was provided discharge information via nursing and hospitalist team. She was given educational materials regarding smoking cessation and she verbally understood these instructions that were given. 4. STATUS: The patient was to remain a FULL CODE STATUS. TIME SPENT: Time spent at discharge was 45 minutes for planning, education and assessment. The patient was to be discharged home via car by . JOB #: [id number] EXT JOB #:[id number] TIMUR
== END 2016-12-24 14:24 | disposition home or self-care (01) | DRG 189 ==
LOC: ED 12:03 → MS 16:46
PROVIDERS: ADMIT Nurse Practitioner; ATTEND Nurse Practitioner
DX: J96.01 Acute respiratory failure with hypoxia (principal); J15.212 Pneumonia due to Methicillin resistant Staphylococcus aureus; J44.0 Chronic obstructive pulmonary disease with (acute) lower respiratory infection; J44.1 Chronic obstructive pulmonary disease with (acute) exacerbation; E11.40 Type 2 diabetes mellitus with diabetic neuropathy, unspecified; E83.42 Hypomagnesemia; D50.9 Iron deficiency anemia, unspecified; F17.210 Nicotine dependence, cigarettes, uncomplicated; H61.23 Impacted cerumen, bilateral; E87.6 Hypokalemia; E03.9 Hypothyroidism, unspecified; I11.9 Hypertensive heart disease without heart failure; H60.391 Other infective otitis externa, right ear; I48.91 Unspecified atrial fibrillation; K21.9 Gastro-esophageal reflux disease without esophagitis; Z86.39 Personal history of other endocrine, nutritional and metabolic disease; Z79.84 Long term (current) use of oral hypoglycemic drugs
CPT/HCPCS: 36415; 71020; 80048; 80053; 81001; 81003; 82150; 82607; 82728; 83036; 83540; 83615; 83690; 83735; 83880; 84100; 84439; 84443; 84466; 84481; 84484; 85025; 85044; 86140; 87040; 87070; 87077; 87086; 87205; 87275; 87276; 93005; 93010; 93306; 94640; 94761; 96365; 96375; 99284; 99285

== ENCOUNTER 2017-03-04 12:29 | Emergency (ER) | payer SELFPAY ==
[2017-03-04 12:38] VITALS: BP 120/68
== END 2017-03-04 14:37 | disposition left against medical advice (07) ==
LOC: ED 12:29
DX: Z53.21 Procedure and treatment not carried out due to patient leaving prior to being seen by health care provider (principal)
CPT/HCPCS: 80053; 83690; 85025

== ENCOUNTER 2017-06-30 18:23 | Outpatient (CLI) | payer MEDICARE, OTHER ==
--- NOTE | 2017-06-30 20:14 | Ultrasound Preliminary Report ---
Exam: US DUPLEX EXT VEINS LEFT IMPRESSION: 1. No evidence of left lower extremity deep venous thrombosis. 2. 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 [facility] The call report notification system was initiated by Dr. Suhail Abbott at 20:09 hrs on 06/30/17. The above findings were discussed with Henrietta Mcpherson by Dr. Suhail Abbott at 20:13 hrs on 06/30. SITE ID: [id number]
--- NOTE | 2017-06-30 20:17 | Ultrasound Report ---
EXAM: LEFT LOWER EXTREMITY VENOUS ULTRASOUND EXAM DATE: 06/30/2017 07:09 PM. CLINICAL HISTORY: SWELLING LEFT LEG. COMPARISON: None. TECHNIQUE: Real-time sonographic vascular imaging was performed by the addiction social worker through the lower extremity utilizing both color-flow and Doppler spectral analysis. Multiple sales representative electric service static nuno ges were saved for review. FINDINGS: Common Femoral Vein (CFV): Normal. CFV-GSV Junction: Normal. Profunda Femoral Vein (PFV): Normal. Femoral Vein (FV) Prox: Normal. Femoral Vein (FV) Mid: Normal. Femoral Vein (FV) Dist: Normal. Popliteal Vein: Normal. Posterior Tibial Veins: Normal. Peroneal Veins: Normal. Contralateral Side CFV: Normal. Other: Heterogeneous plaque noted in the proximal to mid left superficial femoral artery with virtual ly no measurable flow. Reconstitution of flow noted in the popliteal artery. IMPRESSION: 1. No evidence of left lower extremity deep venous thrombosis. 2. 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 [facility] The call report notification system was initiated by Dr. Suhail Abbott at 20:09 hrs on 06/30/17. The above findings were discussed with Hernietta Mcpherson by Dr. Suhail Abbott at 20:13 hrs on 06/30. Referring Provider Line: [phone] SITE ID: [id number]
== END 2017-06-30 18:24 | disposition home or self-care (01) ==
LOC: DI 18:23
PROVIDERS: ATTEND Internal Medicine
DX: I70.202 Unspecified atherosclerosis of native arteries of extremities, left leg (principal); M79.673 Pain in unspecified foot; R60.9 Edema, unspecified
CPT/HCPCS: 36415; 84550